=== PATIENT | female | born 1965 | race Caucasian/White ===

== ENCOUNTER 2016-06-25 12:35 | Emergency (ER) | payer SELFPAY ==
[~2016-06-25] VITALS: Ht 162.6 cm; Wt 79.0 kg
[~2016-06-25 12:35] MED LIST: ALBU1AER INH; BENZ100 PO; PRED20 PO; ZITH250T PO
[2016-06-25 12:44] VITALS: BP 143/93; PULSE 90; RESP 16; TEMP 98.1; O2SAT 99
[2016-06-25] MEDS ORDERED: ACETAMINOPHEN/HYDROcodone 325 MG/5 MG TAB PO ONE (13:15)
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
[2016-06-25 14:04] VITALS: RESP 16
[2016-06-25] MEDS ORDERED: TRAM50TA PO ×2 (14:06→14:11)
[2016-06-25] MEDS ORDERED: IBUP-232 PO (14:06)
--- NOTE | 2016-06-25 14:49 | RADHPO ---
EXAM DATE/TIME: 06/25/2016 13:13 [facility] COMPARISON: No previous studies available for comparison. INDICATIONS : Fell and rolled right ankle and foot this morning. Pain, swelling, and bruising in right ankle and fo ot. MEDICAL HISTORY : None. SURGICAL HISTORY : Internal fixation of right foot. Internal fixation of right fibula. ENCOUNTER: Initial ACUITY: 1 day PAIN SCORE: 9/10 LOCATION: Right foot. FINDINGS: 3 views of the right foot. There is a horizontal fracture of the base of the fifth metatarsal with 3 mm displacement. There is intra-articular extension. Small osteophytes of the first and fifth metatar sophalangeal joints. CONCLUSION: Mildly displaced base of fifth metatarsal fracture with extension into the fifth TMT joint. Rafal Purvis MD on June 25, 2016 at 14:43 Board Certified Radiologist. This report was verified electronically.
--- NOTE | 2016-06-25 14:50 | RADHPO ---
EXAM DATE/TIME: 06/25/2016 13:16 [facility] COMPARISON: No previous studies available for comparison. INDICATIONS : Fell and rolled right ankle and foot this morning. Pain, swelling, and bruising in right ankle and fo ot. MEDICAL HISTORY : None. SURGICAL HISTORY : Internal fixation of right foot. Internal fixation of right fibula. ENCOUNTER: Initial ACUITY: 1 day PAIN SCORE: 9/10 LOCATION: Right ankle. FINDINGS: 3 views right ankle. Base of fifth metatarsal fracture. Old healed fibular shaft fracture. Ankle mort ise intact. CONCLUSION: Fifth metatarsal base fracture with extension into the fifth TMT joint. Rafal Purvis MD on June 25, 2016 at 14:48 Board Certified Radiologist. This report was verified electronically.
== END 2016-06-25 15:05 | disposition home or self-care (01) ==
LOC: PHED 12:35 → PHEFT 15:05
DX: S92.351A Displaced fracture of fifth metatarsal bone, right foot, initial encounter for closed fracture (principal); X58.XXXA Exposure to other specified factors, initial encounter; Y92.480 Sidewalk as the place of occurrence of the external cause
CPT/HCPCS: 73610; 73630; 99283; L3260